=== PATIENT | female | born 1995 | race Caucasian/White ===

== ENCOUNTER 2018-03-17 11:09 | Emergency (ER) | payer SELFPAY ==
[~2018-03-17] VITALS: Ht 166.4 cm; Wt 127.0 kg
[~2018-03-17 11:09] MED LIST: ACHD5005 PO; CEPH500C PO; FLUT1DIS28 IH; IBP600T1 PO; MULT-608 PO
[2018-03-17] MEDS ORDERED: APAP 300 MG/CODEINE 30 MG (TYLENOL #3) TAB PO ONE (11:30)
[2018-03-17] MEDS ORDERED: ONDANSETRON 4 MG (ZOFRAN) ORAL DISSOLVE TAB PO ONE (11:30)
--- NOTE | 2018-03-17 11:40 | ED Cough/URI ---
General Chief Complaint: Cough/Cold/Flu Symptoms Stated Complaint: COUGH/CONGESTION/VOMITING Source: patient Exam Limitations: no limitations History of Present Illness Date Seen by Provider: Mar 17, 2018 Time Seen by Provider: 11:35 Initial Comments To Er with c/o cough x6 days. Shes had chills, rhinorrhea, and on day 2 she had sore throat. However, the sore throat has since resolved. The cough was initially productive but is now dry. Shes had no measured fevers. Shes using inhalers (flluticasone and albuterol) without much relief. She does not have a history of asthma and is otherwise healthy as far as she knows. She has had some post tussive vomiting as well. Timing/Duration: just prior to arrival Severity/Quality: dry cough Modifying Factors: Improves With Albuterol Inhaler Associated Symptoms: cough, fever/chills, nasal congestion, sore throat Allergies and Home Medications Allergies Coded Allergies: No Known Drug Allergies (Unverified , 08/18/10) Home Medications Acetaminophen with Codeine 1 Each Tablet, 1 EACH PO Q6H PRN for COUGH Prescribed by: MARLO MUSA on 03/17/18 114 Azithromycin 250 Mg Tablet, 250 MG PO UD TAKE 2 TABLETS ON DAY ONE THEN TAKE 1 TABLET DAILY FOR FOUR MORE DAYS Prescribed by: MARLO MUSA on 03/17/18 114 Cephalexin Monohydrate 500 Mg Capsule, 1 EACH PO QID Prescribed by: DARRELL WILDER on 08/18/102030 Fluticasone/Salmeterol 1 Disk Inhp, 1 PUFF IH BID, (Reported) Hydrocodone Bit/Acetaminophen 1 Each Tablet, 1 EACH PO Q6H PRN Prescribed by: DARRELL WILDER on 08/18/102030 Ibuprofen 600 Mg Tab, 600 MG PO Q8HR PRN Prescribed by: DARRELL WILDER on 08/18/102030 Multivitamins 1 Tab Tablet, 1 TAB PO DAILY, (Reported) Prednisone 20 Mg Tab, 40 MG PO DAILY Prescribed by: MARLO MUSA on 03/17/18 1339 Patient Home Medication List Home Medication List Reviewed: Yes Review of Systems Review of Systems Constitutional: see HPI, chills; No fever EENTM: see HPI, nose congestion Respiratory: see HPI, cough Cardiovascular: no symptoms reported Genitourinary: no symptoms reported Musculoskeletal: no symptoms reported Skin: no symptoms reported Psychiatric/Neurological: No Symptoms Reported Hematologic/Lymphatic: No Symptoms Reported Past Peksemc-Efhvos-Sfsxls Hx Patient Social History Alcohol Use: Denies Use Recreational Drug Use: No Smoking Status: Never a Smoker 2nd Hand Smoke Exposure: No Recent Foreign Travel: No Contact w/Someone Who Travel: No Recent Hopitalizations: No Physical Abuse: No Sexual Abuse: No Mistreated: No Fear: No Seasonal Allergies Seasonal Allergies: No Past Medical History Surgeries: No Respiratory: No Cardiac: No Neurological: No Genitourinary: No Gastrointestinal: No Musculoskeletal: No Endocrine: No HEENT: Yes (eye surgery at 3 months) Cancer: No Psychosocial: No Integumentary: No Blood Disorders: No Physical Exam Vital Signs - First Documented 03/17/18 03/17/18 11:15 11:56 Temp 99.7 Pulse 117 Resp 18 B/P (MAP) 122/78 (93) Pulse Ox 93 O2 Delivery Room Air O2 Flow Rate 1.00 Capillary Refill : Height: '" Weight: lbs. oz. kg; BMI Method: General Appearance: WD/WN, no apparent distress, obese Eyes: Bilateral Eye Normal Inspection, Bilateral Eye PERRL, Bilateral Eye EOMI HEENT: PERRL/EOMI, normal ENT inspection, TMs normal, pharynx normal; No pharyngeal erythema Neck: non-tender, full range of motion Respiratory: lungs clear, normal breath sounds, no respiratory distress, no accessory muscle use; No wheezing Cardiovascular: regular rate, rhythm, no murmur Neurologic/Psychiatric: alert, normal mood/affect, oriented x 3 Skin: normal color, warm/dry Progress/Results/Core Measures Suspected Sepsis SIRS Temperature: Pulse: Respiratory Rate: Laboratory Tests 03/17/18 11:56: White Blood Count 11.1H Blood Pressure / Mean: Laboratory Tests 03/17/18 11:56: Creatinine 0.77, Platelet Count 284 Results/Orders Lab Results Laboratory Tests Test 03/17/18 11:56 Range/Units White Blood Count 11.1 H 4.3-11.0 10^3/uL Red Blood Count 4.50 4.35-5.85 10^6/uL Hemoglobin 13.5 11.5-16.0 G/DL Hematocrit 41 35-52 % Mean Corpuscular Volume 90 80-99 FL Mean Corpuscular Hemoglobin 30 25-34 PG Mean Corpuscular Hemoglobin Concent 33 32-36 G/DL Red Cell Distribution Width 14.2 10.0-14.5 % Platelet Count 284 130-400 10^3/uL Mean Platelet Volume 10.4 7.4-10.4 FL Neutrophils (%) (Auto) 79 H 42-75 % Lymphocytes (%) (Auto) 12 12-44 % Monocytes (%) (Auto) 7 0-12 % Eosinophils (%) (Auto) 2 0-10 % Basophils (%) (Auto) 1 0-10 % Neutrophils # (Auto) 8.7 H 1.8-7.8 X 10^3 Lymphocytes # (Auto) 1.3 1.0-4.0 X 10^3 Monocytes # (Auto) 0.8 0.0-1.0 X 10^3 Eosinophils # (Auto) 0.2 0.0-0.3 10^3/uL Basophils # (Auto) 0.1 0.0-0.1 10^3/uL D-Dimer 0.50 H 0.00-0.49 UG/ML Sodium Level 140 135-145 MMOL/L Potassium Level 4.0 3.6-5.0 MMOL/L Chloride Level 106 98-107 MMOL/L Carbon Dioxide Level 21 21-32 MMOL/L Anion Gap 13 5-14 MMOL/L Blood Urea Nitrogen 9 7-18 MG/DL Creatinine 0.77 0.60-1.30 MG/DL Estimat Glomerular Filtration Rate > 60 BUN/Creatinine Ratio 12 Glucose Level 109 H 70-105 MG/DL Calcium Level 9.4 8.5-10.1 MG/DL Serum Test, Qualitative NEGATIVE NEGATIVE My Orders Orders - MARLO MUSA APRN Chest Pa/Lat (2 View) (03/17/18 11:20) Acetaminophen/Codeine Tablet (Tylenol W/ (03/17/18 11:30) Ondansetron Oral Dissolve Tab (Zofran (03/17/18 11:30) Cbc With Automated Diff (03/17/18 11:46) Basic Metabolic Panel (03/17/18 11:46) Hcg,Qualitative Serum (03/17/18 11:46) Iv Heplock-Insert (Order) (03/17/18 11:46) Albuterol/Ipra Inhalation Soln (Duoneb I (03/17/18 12:00) Ns Iv 1000 Ml (Sodium Chloride 0.9%) (03/17/18 12:00) Svn Small Volume Nebulizer (03/17/18 11:46) Fibrin Degradation Products (03/17/18 12:09) Ct Angio Chest W (03/17/18 12:35) Iohexol Injection (Omnipaque 350 Mg/Ml 1 (03/17/18 13:00) Contrast Received (Contrast Received) (03/17/18 13:00) Sodium Chloride Flush (Catheter Flush Sy (03/17/18 13:00) Ns (Ivpb) (Sodium Chloride 0.9%) (03/17/18 13:00) Medications Given in ED Current Medications Medications Dose Ordered Sig/Dany Route Start Time Stop Time Status Last Admin Dose Admin Acetaminophen/ Codeine Phosphate 1 tab ONCE ONCE PO 03/17/18 11:30 03/17/18 11:31 DC 03/17/18 11:31 1 TAB Albuterol/ Ipratropium 3 ml ONCE ONCE INH 03/17/18 12:00 03/17/18 12:01 DC 03/17/18 11:56 3 ML Iohexol 150 ml ONCE ONCE IV 03/17/18 13:00 03/17/18 13:01 DC 03/17/18 13:07 125 ML Ondansetron HCl 4 mg ONCE ONCE PO 03/17/18 11:30 03/17/18 11:31 DC 03/17/18 11:31 4 MG Sodium Chloride 10 ml NEEDED PRN IV 03/17/18 13:00 03/17/18 13:07 10 ML Sodium Chloride 250 ml ONCE ONCE IV 03/17/18 13:00 03/17/18 13:01 DC 03/17/18 13:07 80 ML Vital Signs/I&O 03/17/18 03/17/18 11:15 11:56 Temp 99.7 Pulse 117 Resp 18 B/P (MAP) 122/78 (93) Pulse Ox 93 97 O2 Delivery Room Air Nasal Cannula O2 Flow Rate 1.00 Capillary Refill : Departure Communication (Admissions) 1147-her oxygen saturation does drop to 89% on room air while reclined. Heart rate 110. We will start an IV, give IV fluids, check a d-dimer and basic labs and give a DuoNeb treatment. 1350- oxygen saturation is still 90-95% on room air going lowest when she lays back and proving when she sits upright. We will discharge to home with return precautions. Impression Primary Impression: Bronchitis Disposition: 01 HOME, SELF-CARE Condition: Stable Departure-Patient Inst. Decision time for Depature: 11:39 Referrals: NO,LOCAL PHYSICIAN (PCP/Family) Primary Care Physician Patient Instructions: Acute Bronchitis, Adult (DC) Add. Discharge Instructions: 1. REturn to ER for any concerns 2. Take medication as directed 3. Follow up with your doctor next week All discharge instructions reviewed with patient and/or family. Voiced understanding. Scripts Prednisone (Prednisone) 20 Mg Tab 40 MG PO DAILY, #8 TAB Prov: MARLO MUSA APRN 03/17/18 Acetaminophen with Codeine (Tylenol with Codeine #3 Tablet) 1 Each Tablet 1 EACH PO Q6H PRN for COUGH, #14 TAB Prov: MARLO MUSA APRN 03/17/18 Azithromycin (Azithromycin) 250 Mg Tablet 250 MG PO UD, #6 TAB TAKE 2 TABLETS ON DAY ONE THEN TAKE 1 TABLET DAILY FOR FOUR MORE DAYS Prov: MARLO MUSA APRN 03/17/18 MARLO MUSA APRN Mar 17, 2018 11:40
[2018-03-17] MEDS ORDERED: ACET-789 PO (11:41)
[2018-03-17] MEDS ORDERED: AZIT250T12 PO (11:41)
--- NOTE | 2018-03-17 11:54 | Diagnostic Imaging Report ---
PATIENT HISTORY: Cough, vomiting. TECHNIQUE: Single frontal view of the chest COMPARISON: None FINDINGS: There are mildly prominent perihilar interstitial markings. No focal airspace consolidation is seen. The cardio mediastinal silhouette is normal in size and contour. No pleural effusion or pneumothorax is present. IMPRESSION: Mildly prominent perihilar interstitial markings, may represent a viral pneumonitis or reactive airway. Dictated by: Dictated on workstation # [id number]
[2018-03-17] MEDS ORDERED: NS IV 1000 ML 1,000 ML IV SCH (12:00)
[2018-03-17] MEDS ORDERED: RT-ALBUTEROL/IPRATROPIUM 3 ML (DUONEB) VIAL INH ONE (12:00)
[2018-03-17 12:07] LABS: BASOPHILS # (AUTO) 0.1 10^3/uL (0.0-0.1); BASOPHILS % (AUTO) 1 % (0-10); EOSINOPHILS # (AUTO) 0.2 10^3/uL (0.0-0.3); EOSINOPHILS % (AUTO) 2 % (0-10); HEMATOCRIT 41 % (35-52); HEMOGLOBIN 13.5 G/DL (11.5-16.0); LYMPHOCYTES # (AUTO) 1.3 X 10^3 (1.0-4.0); LYMPHOCYTES % (AUTO) 12 % (12-44); MEAN CORPUSCULAR HEMOGLOBIN 30 PG (25-34); MEAN CORPUSCULAR HGB CONC 33 G/DL (32-36); MEAN CORPUSCULAR VOLUME 90 FL (80-99); MEAN PLATELET VOLUME 10.4 FL (7.4-10.4); MONOCYTES # (AUTO) 0.8 X 10^3 (0.0-1.0); MONOCYTES % (AUTO) 7 % (0-12); NEUTROPHILS # (AUTO) 8.7 X 10^3 (1.8-7.8); NEUTROPHILS % (AUTO) 79 % (42-75); PLATELET COUNT 284 10^3/uL (130-400); RED CELL DISTRIBUTION WIDTH 14.2 % (10.0-14.5); WHITE BLOOD COUNT 11.1 10^3/uL (4.3-11.0)
[2018-03-17 12:26] LABS: BUN/CREATININE RATIO 12; CALCIUM 9.4 MG/DL (8.5-10.1); CARBON DIOXIDE 21 MMOL/L (21-32); CHLORIDE 106 MMOL/L (98-107); CREATININE SERUM 0.77 MG/DL (0.60-1.30); GFR ESTIMATED > 60; GLUCOSE 109 MG/DL (70-105); SODIUM 140 MMOL/L (135-145)
[2018-03-17] MEDS ORDERED: NS 250 ML (IVPB) BAG IV ONE (13:00)
[2018-03-17] MEDS ORDERED: IOHEXOL 350 MG/ML 150 ML (OMNIPAQUE 350) VIAL IV ONE (13:00)
[2018-03-17] MEDS ORDERED: RECEIVED CONTRAST (Hold Metformin) IV SCH (13:00)
[2018-03-17] MEDS ORDERED: CATHETER FLUSH 10 ML SYR IV PRN (13:00)
--- NOTE | 2018-03-17 13:36 | Diagnostic Imaging Report ---
PROCEDURE: CT angiography of the chest with contrast. TECHNIQUE: Multiple contiguous axial images were obtained through the chest after uneventful bolus administration of intravenous contrast. 2D reconstructed CTA MIP acquisitions were also performed. INDICATION: Cough. Chest pain. COMPARISON: Chest radiographs 03/17/2018. FINDINGS: No thoracic aortic aneurysm or dissection. No pulmonary artery filling defects. Normal heart size. No pericardial effusion. No mediastinal, hilar, or axillary lymphadenopathy. There is a small ground-glass opacity in the inferolateral right upper lobe. There is also small ground-glass opacity in the anterior right middle lobe. No endobronchial lesions. No pleural effusion or pneumothorax. No acute osseous findings. The visualized upper abdominal contents are unremarkable. IMPRESSION: 1. No thoracic aortic aneurysm or dissection. No pulmonary emboli. 2. There are a couple of small ground-glass opacities in the right lung suspicious for pneumonitis. Dictated by: Dictated on workstation # [id number]
[2018-03-17] MEDS ORDERED: PRD20T PO (13:39)
[2018-03-17 13:50] VITALS: BP 123/77
== END 2018-03-17 13:50 | disposition home or self-care (01) ==
LOC: EDUNIT# 11:09 → ER 11:10
DX: J40 Bronchitis, not specified as acute or chronic (principal); Z79.51 Long term (current) use of inhaled steroids; Z79.52 Long term (current) use of systemic steroids
CPT/HCPCS: 36415; 71046; 71275; 80048; 84703; 85025; 85379; 94640